=== PATIENT | male | born 1970 | race Caucasian/White ===

== ENCOUNTER 2018-10-09 09:48 | Emergency (ER) | payer OTHER ==
[~2018-10-09] VITALS: Ht 177.8 cm; Wt 120.2 kg
[2018-10-09 09:48] VITALS: BP_SYST 133
[2018-10-09] MEDS ORDERED: LORazepam 1 MG TABLET PO ONE (10:30)
[2018-10-09 11:00] LABS: CALCIUM 8.6 mg/dL (8.4-11.0); CREATININE 0.66 mg/dL (0.55-1.30); POTASSIUM 3.6 mmol/L (3.5-5.1)
[2018-10-09 11:03] LABS: BASOPHILS % (AUTO) 0.7 % (0.0-2.0); EOSINOPHILS # (AUTO) 0.1 K/uL (0.0-0.4); EOSINOPHILS % (AUTO) 1.2 % (0.0-4.0); HEMATOCRIT 43.6 % (36-54); HEMOGLOBIN 14.8 g/dL (14.0-18.0); LYMPHOCYTES # (AUTO) 1.7 K/uL (1.0-5.5); LYMPHOCYTES % (AUTO) 26.7 % (20.5-51.5); MEAN CORPUSCULAR HEMOGLOBIN 30 pg (27-31); MEAN CORPUSCULAR HGB CONC 34 % (32-36); MEAN CORPUSCULAR VOLUME 88 fL (79.0-98.0); MONOCYTES # (AUTO) 0.5 K/uL (0.0-1.0); MONOCYTES % (AUTO) 8.2 % (1.7-9.3); NEUTROPHILS % (AUTO) 63.2 % (40.0-70.0); PLATELET COUNT (AUTO) 229 K/uL (130-430); RED BLOOD CELL COUNT(AUTO) 4.93 MIL/uL (4.2-6.2); RED CELL DISTRIBUTION WIDTH 13.4 % (9.0-15.0); WHITE BLOOD COUNT (AUTO) 6.4 K/uL (4.8-10.8)
[2018-10-09 11:05] LABS: ALBUMIN 3.9 g/dL (3.4-4.8); TOTAL BILIRUBIN 1.3 mg/dL (0.0-1.0)
[2018-10-09 11:32] LABS: CKMB RELATIVE INDEX 0.4 (0.0-2.9); CREATINE KINASE MB 1.4 ng/mL (0-3.6)
[2018-10-09 12:25] VITALS: BP_SYST 147
== END 2018-10-09 12:25 | disposition home or self-care (01) ==
LOC: SED 09:48
DX: R00.2 Palpitations (principal); I10 Essential (primary) hypertension; E78.00 Pure hypercholesterolemia, unspecified; E66.01 Morbid (severe) obesity due to excess calories; Z68.38 Body mass index [BMI] 38.0-38.9, adult
CPT/HCPCS: 36415; 71045; 80053; 82550-TC; 82553-TC; 84484; 85025; 93005; 99284

== ENCOUNTER 2018-11-03 12:47 | Emergency (ER) | payer OTHER ==
[~2018-11-03] VITALS: Ht 177.8 cm; Wt 117.9 kg
[2018-11-03 13:11] VITALS: BP_SYST 134
[2018-11-03 13:56] LABS: HEMATOCRIT 44.5 % (36-54); HEMOGLOBIN 15.1 g/dL (14.0-18.0); MEAN CORPUSCULAR HEMOGLOBIN 30 pg (27-31); MEAN CORPUSCULAR HGB CONC 34 % (32-36); MEAN CORPUSCULAR VOLUME 89 fL (79.0-98.0); RED BLOOD CELL COUNT(AUTO) 5.01 MIL/uL (4.2-6.2); RED CELL DISTRIBUTION WIDTH 14.2 % (9.0-15.0); WHITE BLOOD COUNT (AUTO) 6.1 K/uL (4.8-10.8)
[2018-11-03 13:57] LABS: BASOPHILS % (AUTO) 0.6 % (0.0-2.0); EOSINOPHILS % (AUTO) 0.5 % (0.0-4.0); LYMPHOCYTES # (AUTO) 1.1 K/uL (1.0-5.5); LYMPHOCYTES % (AUTO) 18.8 % (20.5-51.5); MONOCYTES # (AUTO) 0.5 K/uL (0.0-1.0); MONOCYTES % (AUTO) 7.9 % (1.7-9.3); NEUTROPHILS # (AUTO) 4.4 K/uL (1.8-7.7); NEUTROPHILS % (AUTO) 72.2 % (40.0-70.0); PLATELET COUNT (AUTO) 240 K/uL (130-430)
[2018-11-03 14:10] LABS: ALANINE AMINOTRANSFERASE 44 U/L (12-78); ALBUMIN 3.9 g/dL (3.4-4.8); ANION GAP 10 (5-15); ASPARTATE AMINOTRANSFERASE 35 U/L (10-37); CALCIUM 9.1 mg/dL (8.4-11.0); CHLORIDE 99 mmol/L (98-107); CREATININE 0.83 mg/dL (0.55-1.30); GLUCOSE 126 mg/dL (70-99); POTASSIUM 3.7 mmol/L (3.5-5.1); SODIUM SERUM 138 mmol/L (136-145); TOTAL BILIRUBIN 0.8 mg/dL (0.0-1.0); UREA NITROGEN, BLOOD 6 mg/dL (8-21)
[2018-11-03 14:11] LABS: ALCOHOL, BLOOD < 3 mg/dL (<10); GFR AFRICAN AMERICAN 129 mL/min (>90)
[2018-11-03] MEDS ORDERED: FOLIC ACID 1 MG, THIAMINE HCL 100 MG, MAGNESIUM SULFATE 1 GM, MVI 10 ML in NACL 0.9% 1,... IV ONE (15:00)
[2018-11-03] MEDS ORDERED: LORazepam 2 MG/ML VIAL (FOR ER USE) IVP ONE (15:15)
[2018-11-03] MEDS ORDERED: NACL 0.9% 1,000 ML IV ONE (15:15)
[2018-11-03 19:14] LABS: BARBITURATE, URINE NEGATIVE (NEG <=200); BENZODIAZEPINE, URINE POSITIVE (NEG <=150); CANNABINOID, URINE NEGATIVE (NEG <=50); COCAINE, URINE NEGATIVE (NEG <=150); METHAMPHETAMINES SCREEN,URINE NEGATIVE (NEG <=500); OPIATE, URINE NEGATIVE (NEG <=100); PHENCYCLIDINE SCREEN,URINE NEGATIVE (NEG <=25); UR TRICYCLIC ANTIDEPRESSANTS NEGATIVE (NEG <=300); URINE AMPHETAMINE NEGATIVE (NEG <=500); URINE METHADONE NEGATIVE (NEG <=200); URINE OXYCODONE SCREEN NEGATIVE (NEG <=100); URINE PROPOXYPHENE SCREEN NEGATIVE (NEG <=300)
[2018-11-03 20:03] VITALS: BP_SYST 126
== END 2018-11-03 20:03 | disposition home or self-care (01) ==
LOC: SED 12:47
DX: F10.129 Alcohol abuse with intoxication, unspecified (principal); E78.00 Pure hypercholesterolemia, unspecified; I10 Essential (primary) hypertension; R51 Headache; R11.0 Nausea; Y90.0 Blood alcohol level of less than 20 mg/100 ml
CPT/HCPCS: 36415; 80053; 80307; 84484; 85025; 96374; 99283; G0482; J2060; J7030

== ENCOUNTER 2019-12-12 20:51 | Inpatient (IN) | payer OTHER ==
[~2019-12-12] VITALS: Ht 177.8 cm; Wt 126.6 kg
[2019-12-12 20:55] VITALS: BP_SYST 150
[2019-12-12 21:44] LABS: BASOPHILS % (AUTO) 0.3 % (0.0-2.0); EOSINOPHILS # (AUTO) 0.1 K/uL (0.0-0.4); EOSINOPHILS % (AUTO) 1.4 % (0.0-4.0); HEMATOCRIT 43.2 % (36-54); HEMOGLOBIN 14.8 g/dL (14.0-18.0); LYMPHOCYTES # (AUTO) 1.9 K/uL (1.0-5.5); MEAN CORPUSCULAR HEMOGLOBIN 30 pg (27-31); MEAN CORPUSCULAR HGB CONC 34 % (32-36); MEAN CORPUSCULAR VOLUME 88 fL (79.0-98.0); MONOCYTES # (AUTO) 0.7 K/uL (0.0-1.0); MONOCYTES % (AUTO) 8.8 % (1.7-9.3); NEUTROPHILS # (AUTO) 5.5 K/uL (1.8-7.7); NEUTROPHILS % (AUTO) 66.5 % (40.0-70.0); PLATELET COUNT (AUTO) 207 K/uL (130-430); RED BLOOD CELL COUNT(AUTO) 4.89 MIL/uL (4.2-6.2); RED CELL DISTRIBUTION WIDTH 13.9 % (9.0-15.0); WHITE BLOOD COUNT (AUTO) 8.2 K/uL (4.8-10.8)
[2019-12-12 21:51] LABS: CALCIUM 8.8 mg/dL (8.4-11.0); CREATININE 0.93 mg/dL (0.55-1.30); POTASSIUM 3.8 mmol/L (3.5-5.1)
[2019-12-12 21:55] LABS: PROTHROMBIN TIME 10.5 SECS (9.5-12.5)
[2019-12-12 21:56] LABS: ALBUMIN 3.7 g/dL (3.4-4.8); TOTAL BILIRUBIN 1.5 mg/dL (0.0-1.0)
[2019-12-12] MEDS ORDERED: ASPIRIN 81 MG TAB.CHEW PO ONE (22:00)
[2019-12-12] MEDS ORDERED: chlordiazePOXIDE HCL 25 MG CAPSULE PO ONE (22:30)
[2019-12-12] MEDS ORDERED: chlordiazePOXIDE HCL 25 MG CAPSULE ONE (22:44)
[2019-12-12] MEDS ORDERED: ASPIRIN 81 MG TAB.CHEW ONE (22:44)
[2019-12-12] MEDS ORDERED: ASA81 PO (23:19)
[2019-12-12] MEDS ORDERED: LIP80 PO (23:19)
[2019-12-12] MEDS ORDERED: METO25TA3 PO (23:19)
[2019-12-12] MEDS ORDERED: OMEP20CA11 PO (23:19)
[2019-12-12] MEDS ORDERED: NOR10 PO (23:19)
[2019-12-12] MEDS ORDERED: ASCO500T20 PO (23:19)
[2019-12-12] MEDS ORDERED: CYAN100T3 PO (23:19)
[2019-12-13] MEDS ORDERED: ALBUTEROL SULFATE 0.083% 2.5 MG/3 ML VIAL.NEB INH PRN (00:30)
[2019-12-13] MEDS ORDERED: ONDANSETRON HCL 4 MG/2 ML VIAL IVP PRN (00:30)
[2019-12-13] MEDS ORDERED: MORPHINE 2 MG/ML INJ. SYRINGE IVP PRN (00:30)
[2019-12-13] MEDS ORDERED: ACETAMINOPHEN 325 MG TABLET PO PRN (00:30)
[2019-12-13] MEDS ORDERED: FOLIC ACID 1 MG, THIAMINE HCL 100 MG, MAGNESIUM SULFATE 1 GM, MVI 10 ML in NACL 0.9% 1,... IV SCH (00:45)
[2019-12-13 04:39] VITALS: BP_SYST 128
[2019-12-13] MEDS: NACL 0.9% 1,000 ML IV SCH ×3 (05:27→20:24)
[2019-12-13] MEDS: LORazepam 2 MG/ML VIAL IVP PRN ×2 (05:40→23:46)
[2019-12-13 06:09] VITALS: BP_SYST 144
[2019-12-13 06:42] LABS: BASOPHILS # (AUTO) 0.1 K/uL (0.0-0.2); BASOPHILS % (AUTO) 0.8 % (0.0-2.0); EOSINOPHILS # (AUTO) 0.1 K/uL (0.0-0.4); EOSINOPHILS % (AUTO) 1.8 % (0.0-4.0); HEMOGLOBIN 14.2 g/dL (14.0-18.0); LYMPHOCYTES # (AUTO) 1.7 K/uL (1.0-5.5); LYMPHOCYTES % (AUTO) 26.5 % (20.5-51.5); MEAN CORPUSCULAR HEMOGLOBIN 30 pg (27-31); MEAN CORPUSCULAR HGB CONC 34 % (32-36); MEAN CORPUSCULAR VOLUME 88 fL (79.0-98.0); MONOCYTES # (AUTO) 0.7 K/uL (0.0-1.0); MONOCYTES % (AUTO) 10.9 % (1.7-9.3); NEUTROPHILS # (AUTO) 3.9 K/uL (1.8-7.7); PLATELET COUNT (AUTO) 197 K/uL (130-430); RED BLOOD CELL COUNT(AUTO) 4.76 MIL/uL (4.2-6.2); RED CELL DISTRIBUTION WIDTH 14.1 % (9.0-15.0); WHITE BLOOD COUNT (AUTO) 6.4 K/uL (4.8-10.8)
[2019-12-13 06:54] LABS: ALANINE AMINOTRANSFERASE 63 U/L (12-78); ALBUMIN 3.2 g/dL (3.4-4.8); ANION GAP 9 (5-15); ASPARTATE AMINOTRANSFERASE 82 U/L (10-37); CALCIUM 8.3 mg/dL (8.4-11.0); CHLORIDE 100 mmol/L (98-107); CREATININE 0.72 mg/dL (0.55-1.30); GLUCOSE 128 mg/dL (70-99); POTASSIUM 3.2 mmol/L (3.5-5.1); SODIUM SERUM 136 mmol/L (136-145); TOTAL BILIRUBIN 1.4 mg/dL (0.0-1.0); UREA NITROGEN, BLOOD 4 mg/dL (8-21)
[2019-12-13] MEDS: PANTOPRAZOLE SODIUM 40 MG TAB PO SCH (06:59)
[2019-12-13 07:05] LABS: GFR AFRICAN AMERICAN 150 mL/min (>90)
[2019-12-13 07:21] LABS: CHOLESTEROL 182 mg/dL (<200); HDL CHOLESTEROL 56 mg/dL (>45); LDL CHOLESTEROL 98 mg/dL (<100); TRIGLYCERIDES 179 mg/dL (30-150)
[2019-12-13 07:45] VITALS: BP_SYST 145
[2019-12-13] MEDS: amLODIPine BESYLATE 10 MG TABLET PO SCH (08:24)
[2019-12-13] MEDS: ASPIRIN 81 MG TAB.CHEW PO SCH (08:25)
[2019-12-13] MEDS: chlordiazePOXIDE HCL 25 MG CAPSULE PO SCH ×3 (08:25→20:19)
[2019-12-13] MEDS: METOPROLOL SUCCINATE 25 MG TAB.SR.24H (TOPROL XL) PO SCH ×2 (08:25→20:19)
[2019-12-13] MEDS ORDERED: OMEPRAZOLE Non-Formulary 20 MG CAPSULE.DR PO SCH (09:00)
[2019-12-13] MEDS: FOLIC ACID 1 MG, MVI 10 ML in NACL 0.9% 1,000 ML IV SCH (09:56)
[2019-12-13] MEDS: THIAMINE HCL 100 MG, MAGNESIUM SULFATE 1 GM in NS 100 ML IV SCH (09:57)
[2019-12-13 12:23] VITALS: BP_SYST 138
[2019-12-13 16:16] VITALS: BP_SYST 136
[2019-12-13 20:00] VITALS: BP_SYST 130
[2019-12-13] MEDS ORDERED: POTASSIUM CHLORIDE 20 MEQ TAB.PRT.SR PO ONE (20:00)
[2019-12-13] MEDS: DOCUSATE SODIUM 100 MG CAPSULE PO PRN (20:19)
[2019-12-13] MEDS: ATORVASTATIN 20 MG TABLET PO SCH (20:19)
[2019-12-13] MEDS ORDERED: ATORVASTATIN 20 MG TABLET PO SCH (21:00)
[2019-12-14 01:25] VITALS: BP_SYST 134
[2019-12-14] MEDS: NACL 0.9% 1,000 ML IV SCH ×3 (02:30→22:57)
[2019-12-14] MEDS: PANTOPRAZOLE SODIUM 40 MG TAB PO SCH (06:00)
[2019-12-14 06:42] LABS: ALBUMIN 2.9 g/dL (3.4-4.8); CALCIUM 8.1 mg/dL (8.4-11.0); CREATININE 0.75 mg/dL (0.55-1.30); POTASSIUM 3.6 mmol/L (3.5-5.1); TOTAL BILIRUBIN 1.2 mg/dL (0.0-1.0)
[2019-12-14 07:39] LABS: BASOPHILS # (AUTO) 0.1 K/uL (0.0-0.2); BASOPHILS % (AUTO) 0.9 % (0.0-2.0); EOSINOPHILS # (AUTO) 0.1 K/uL (0.0-0.4); EOSINOPHILS % (AUTO) 2.4 % (0.0-4.0); HEMATOCRIT 41.2 % (36-54); HEMOGLOBIN 13.7 g/dL (14.0-18.0); LYMPHOCYTES # (AUTO) 1.6 K/uL (1.0-5.5); MEAN CORPUSCULAR HEMOGLOBIN 30 pg (27-31); MEAN CORPUSCULAR HGB CONC 33 % (32-36); MEAN CORPUSCULAR VOLUME 89 fL (79.0-98.0); MONOCYTES # (AUTO) 0.5 K/uL (0.0-1.0); MONOCYTES % (AUTO) 8.3 % (1.7-9.3); NEUTROPHILS # (AUTO) 3.6 K/uL (1.8-7.7); NEUTROPHILS % (AUTO) 61.4 % (40.0-70.0); PLATELET COUNT (AUTO) 188 K/uL (130-430); RED BLOOD CELL COUNT(AUTO) 4.61 MIL/uL (4.2-6.2); RED CELL DISTRIBUTION WIDTH 14.3 % (9.0-15.0); WHITE BLOOD COUNT (AUTO) 5.9 K/uL (4.8-10.8)
[2019-12-14 07:54] VITALS: BP_SYST 145
[2019-12-14] MEDS: ASPIRIN 81 MG TAB.CHEW PO SCH (08:32)
[2019-12-14] MEDS: chlordiazePOXIDE HCL 25 MG CAPSULE PO SCH ×3 (08:32→19:59)
[2019-12-14] MEDS: DOCUSATE SODIUM 100 MG CAPSULE PO PRN ×2 (08:32→19:59)
[2019-12-14] MEDS: amLODIPine BESYLATE 10 MG TABLET PO SCH (08:32)
[2019-12-14] MEDS: METOPROLOL SUCCINATE 25 MG TAB.SR.24H (TOPROL XL) PO SCH ×2 (08:36→20:00)
[2019-12-14] MEDS: THIAMINE HCL 100 MG, MAGNESIUM SULFATE 1 GM in NS 100 ML IV SCH (09:14)
[2019-12-14] MEDS: FOLIC ACID 1 MG, MVI 10 ML in NACL 0.9% 1,000 ML IV SCH (09:15)
[2019-12-14 12:25] VITALS: BP_SYST 121
[2019-12-14 16:20] VITALS: BP_SYST 126
[2019-12-14] MEDS: ATORVASTATIN 20 MG TABLET PO SCH (19:59)
[2019-12-14 20:00] VITALS: BP_SYST 121
[2019-12-14 23:35] VITALS: BP_SYST 127
[2019-12-15] MEDS: LORazepam 2 MG/ML VIAL IVP PRN (00:05)
[2019-12-15] MEDS: PANTOPRAZOLE SODIUM 40 MG TAB PO SCH (05:45)
[2019-12-15 08:00] VITALS: BP_SYST 130
[2019-12-15 08:05] LABS: ALBUMIN 2.9 g/dL (3.4-4.8); CALCIUM 8.2 mg/dL (8.4-11.0); CREATININE 0.8 mg/dL (0.55-1.30); POTASSIUM 3.7 mmol/L (3.5-5.1); TOTAL BILIRUBIN 0.9 mg/dL (0.0-1.0)
[2019-12-15] MEDS ORDERED: REGADENOSON 0.4 MG/5 ML SYRINGE IVP ONE (09:30)
[2019-12-15] MEDS: FOLIC ACID 1 MG, MVI 10 ML in NACL 0.9% 1,000 ML IV SCH (10:19)
[2019-12-15] MEDS: chlordiazePOXIDE HCL 25 MG CAPSULE PO SCH (10:20)
[2019-12-15] MEDS: THIAMINE HCL 100 MG, MAGNESIUM SULFATE 1 GM in NS 100 ML IV SCH (10:20)
[2019-12-15] MEDS: amLODIPine BESYLATE 10 MG TABLET PO SCH (10:21)
[2019-12-15] MEDS: METOPROLOL SUCCINATE 25 MG TAB.SR.24H (TOPROL XL) PO SCH (10:21)
[2019-12-15] MEDS: ASPIRIN 81 MG TAB.CHEW PO SCH (10:21)
[2019-12-15 12:00] VITALS: BP_SYST 135
[2019-12-15 12:26] VITALS: BP_SYST 135
== END 2019-12-15 13:45 | disposition home or self-care (01) | DRG 392 ==
LOC: SED 20:51 → INTOOBSV 23:36 → STU 23:36 → UNDOADMOB 23:36 → STU 12-13 00:24 → INTOOBSV 12-14 09:09 → OBSVTOIN 12-14 09:09 → STU 12-14 10:44 → OBSVTOIN 12-14 10:44
PROVIDERS: ADMIT Internal Medicine Hospice and Palliative Medicine; ATTEND Internal Medicine Hospice and Palliative Medicine
DX: K21.9 Gastro-esophageal reflux disease without esophagitis (principal); E87.1 Hypo-osmolality and hyponatremia; Z68.41 Body mass index [BMI] 40.0-44.9, adult; F10.231 Alcohol dependence with withdrawal delirium; E80.6 Other disorders of bilirubin metabolism; E78.5 Hyperlipidemia, unspecified; I10 Essential (primary) hypertension; R73.9 Hyperglycemia, unspecified; K70.40 Alcoholic hepatic failure without coma; E66.01 Morbid (severe) obesity due to excess calories; F10.20 Alcohol dependence, uncomplicated; Z79.82 Long term (current) use of aspirin; Z79.899 Other long term (current) drug therapy; Z82.49 Family history of ischemic heart disease and other diseases of the circulatory system; Z87.891 Personal history of nicotine dependence; Z71.41 Alcohol abuse counseling and surveillance of alcoholic
CPT/HCPCS: 36415; 71045; 80053; 80061; 83880; 84484; 85025; 85610-TC; 85730-TC; 93005; 93017; 93306; 99285; A9500; G0378; J2060; J2785; J3411; J3475; J3490; J7030; J7050

== ENCOUNTER 2022-03-29 18:55 | Emergency (ER) | payer OTHER, MEDICAID ==
[~2022-03-29] VITALS: Ht 177.8 cm; Wt 131.5 kg
[~2022-03-29 18:55] MED LIST: ASA81 PO; ASCO500T20 PO; CYAN100T44 PO; LIP80 PO; METO25TA3 PO; NOR10 PO; OMEP20CA15 PO
[2022-03-29 19:29] VITALS: BP_SYST 175
--- NOTE | 2022-03-29 19:41 | NUR ---
PT HERE C/O SOB X2 WEEKS PER PT GOT WORSEN TODAY. PER PT HE FEELS DEHYDRATED, HE STATED HE'S BEEN DRINKNING VERYDAY FOR THE PAST 15 YRS AND STOPPED THIS MORNING. HE STATED THAT HE'S NON CMPLIANT WITH HIS MEDS FOR HTN WELL, PER PT HE STOP TAKING THEM 2 YRS AGO. PMH:ALCOHOLISM,HTN
--- NOTE | 2022-03-29 19:55 | NUR ---
Placed in room 5 . Placed on surveillance system monitor, blood pressure machine and pulse oximeter. To gown for exam. Side rails up. Report given to Mirtha STRAUSS.
[2022-03-29 19:57] LABS: BASOPHILS # (AUTO) 0.1 K/uL (0.0-0.2); BASOPHILS % (AUTO) 0.8 % (0.0-2.0); EOSINOPHILS # (AUTO) 0.1 K/uL (0.0-0.4); EOSINOPHILS % (AUTO) 0.6 % (0.0-4.0); HEMATOCRIT 45.2 % (36-54); HEMOGLOBIN 15.5 g/dL (14.0-18.0); LYMPHOCYTES # (AUTO) 1.8 K/uL (1.0-5.5); MEAN CORPUSCULAR HEMOGLOBIN 32 pg (27-31); MEAN CORPUSCULAR HGB CONC 34 % (32-36); MEAN CORPUSCULAR VOLUME 92 fL (79.0-98.0); MONOCYTES % (AUTO) 10.5 % (1.7-9.3); NEUTROPHILS # (AUTO) 6.4 K/uL (1.8-7.7); NEUTROPHILS % (AUTO) 69.1 % (40.0-70.0); PLATELET COUNT (AUTO) 177 K/uL (130-430); RED BLOOD CELL COUNT(AUTO) 4.89 MIL/uL (4.2-6.2); RED CELL DISTRIBUTION WIDTH 15.2 % (9.0-15.0); WHITE BLOOD COUNT (AUTO) 9.3 K/uL (4.8-10.8)
--- NOTE | 2022-03-29 20:00 | NUR ---
Patient brought in complaining of shortness of breath and increased shaking x 4 days. Patient reports drinking alcohol daily for 15 years. Patient reports having Covid-19 2 weeks ago . denies any pain at this time. at bedside.
--- NOTE | 2022-03-29 20:03 | NUR ---
ER at bedside examining patient.
[2022-03-29] MEDS ORDERED: LORazepam 2 MG/ML VIAL IVP ONE (20:15)
[2022-03-29 20:40] LABS: ANION GAP 11 (5-15); CALCIUM 8.9 mg/dL (8.4-11.0); CHLORIDE 97 mmol/L (98-107); CREATININE 0.81 mg/dL (0.55-1.30); GLUCOSE 110 mg/dL (70-99); POTASSIUM 3.5 mmol/L (3.5-5.1); SODIUM SERUM 133 mmol/L (136-145); UREA NITROGEN, BLOOD 2 mg/dL (8-21)
[2022-03-29 20:45] LABS: GFR AFRICAN AMERICAN 130 mL/min (>90)
--- NOTE | 2022-03-29 20:48 | NUR ---
covid swab sent to lab for processing
[2022-03-29 20:57] LABS: ALANINE AMINOTRANSFERASE 32 U/L (12-78); ALBUMIN 3.2 g/dL (3.4-4.8); ASPARTATE AMINOTRANSFERASE 91 U/L (10-37)
[2022-03-29] MEDS ORDERED: NACL 0.9% 1,000 ML IV ONE (21:15)
[2022-03-29] MEDS ORDERED: LIB25 PO (21:39)
[2022-03-29 22:31] VITALS: BP_SYST 142
--- NOTE | 2022-03-29 22:31 | NUR ---
Patient given written and verbal discharge instructions and verbalizes understanding. ER MD discussed with patient the results and treatment provided. Patient in stable condition. ID arm band removed. IV catheter removed intact and dressing applied, no active bleeding. Rx of LIBRIUM given. Patient educated on pain management and to follow up with PMD. Pain Scale 0/10 Opportunity for questions provided and answered.
== END 2022-03-29 22:31 | disposition home or self-care (01) ==
LOC: SED 18:55
DX: F10.239 Alcohol dependence with withdrawal, unspecified (principal); R06.00 Dyspnea, unspecified; I10 Essential (primary) hypertension; Z79.899 Other long term (current) drug therapy; Z20.822 Contact with and (suspected) exposure to COVID-19; Y90.6 Blood alcohol level of 120-199 mg/100 ml
CPT/HCPCS: 99285; 96374; 71045; 96361; 87426; 80053; 83880; 85025; 85379; 84484; 36415; 93005; G0482; J2060; J7030

== ENCOUNTER 2022-11-08 16:48 | Emergency (ER) | payer OTHER, MEDICAID ==
[~2022-11-08] VITALS: Ht 177.8 cm; Wt 140.2 kg
[~2022-11-08 16:48] MED LIST changes: +LIB25 PO
[2022-11-08 16:51] VITALS: BP_SYST 155
--- NOTE | 2022-11-08 16:51 | NUR ---
Placed in room 07 . Placed on ekg monitor tech, blood pressure machine and pulse oximeter. To gown for exam. Side rails up. Report given to RICA Villalta
--- NOTE | 2022-11-08 16:53 | NUR ---
PT BIB SELF FROM HOME WITH C/O ETOH WITHDRAWEL. PT STATES HE TOOK HIS LIBRIUM (CHLORDIAZEPOXIDE) THIS MORNING WITH A SIX PACK OF BEER AND BECOME NAUSEUS. PT STATES HE HAS A HERNIA. VITALS ON ARRIVAL: BP 155/98 HR 112 GLU 197 MG/DL HX - ALCOHOL, HTN, HERNIA. 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 SAFETY PRECAUTIONS AND COMFORT MEASURES IN PLACE. PENDING MD DAMON AND ORDERS.
--- NOTE | 2022-11-08 16:57 | NUR ---
DR. BRANDON AT BEDSIDE EXAMINING THE PT.
[2022-11-08] MEDS ORDERED: NACL 0.9% 2,000 ML IV ONE (17:15)
[2022-11-08] MEDS ORDERED: LORazepam 2 MG/ML VIAL IVP ONE (17:15)
[2022-11-08 17:51] LABS: BASOPHILS # (AUTO) 0.1 K/uL (0.0-0.2); BASOPHILS % (AUTO) 0.9 % (0.0-2.0); EOSINOPHILS # (AUTO) 0.1 K/uL (0.0-0.4); EOSINOPHILS % (AUTO) 1.1 % (0.0-4.0); HEMOGLOBIN 14.6 g/dL (14.0-18.0); MEAN CORPUSCULAR HEMOGLOBIN 33 pg (27-31); MEAN CORPUSCULAR HGB CONC 35 % (32-36); MEAN CORPUSCULAR VOLUME 95 fL (79.0-98.0); MONOCYTES # (AUTO) 0.8 K/uL (0.0-1.0); MONOCYTES % (AUTO) 9.8 % (1.7-9.3); NEUTROPHILS # (AUTO) 6.1 K/uL (1.8-7.7); NEUTROPHILS % (AUTO) 76.2 % (40.0-70.0); PLATELET COUNT (AUTO) 114 K/uL (130-430); RED BLOOD CELL COUNT(AUTO) 4.43 MIL/uL (4.2-6.2); RED CELL DISTRIBUTION WIDTH 18.1 % (9.0-15.0)
[2022-11-08 18:12] LABS: INR 1.4 (0.80-1.20); PROTHROMBIN TIME 14.4 SECS (9.5-12.5)
[2022-11-08 18:13] LABS: ALANINE AMINOTRANSFERASE 39 U/L (12-78); ALBUMIN 2.8 g/dL (3.4-4.8); AMYLASE 21 U/L (0-100); ANION GAP 11 (5-15); ASPARTATE AMINOTRANSFERASE 127 U/L (10-37); CALCIUM 8.2 mg/dL (8.4-11.0); CHLORIDE 100 mmol/L (98-107); CREATININE 0.83 mg/dL (0.55-1.30); GFR AFRICAN AMERICAN 127 mL/min (>90); GLUCOSE 171 mg/dL (70-99); LIPASE 139 U/L (73-393); TOTAL BILIRUBIN 4.2 mg/dL (0.0-1.0); UREA NITROGEN, BLOOD 1 mg/dL (8-21)
[2022-11-08 18:14] LABS: ALCOHOL, BLOOD < 3 mg/dL (<10)
[2022-11-08 18:38] LABS: ACETONE, SERUM NEGATIVE (NEGATIVE)
--- NOTE | 2022-11-08 19:19 | NUR ---
REPORT GIVEN TO RAULITO STRAUSS FOR CONTINUITY OF CARE. ALL QUESTIONS AND CONCERNS ADDRESSED. ALL CARE ENDORSED.
[2022-11-08] MEDS ORDERED: LIB25 PO (19:54)
[2022-11-08 20:28] VITALS: BP_SYST 138
--- NOTE | 2022-11-08 20:30 | NUR ---
Patient given written and verbal discharge instructions and verbalizes understanding. ER MD discussed with patient the results and treatment provided. Patient in stable condition. ID arm band removed. IV catheter removed intact and dressing applied, no active bleeding. Rx given. Patient educated on pain management and to follow up with PMD. Pain Scale 0/10. Opportunity for questions provided and answered. Medication side effect fact sheet provided.
== END 2022-11-08 20:28 | disposition home or self-care (01) ==
LOC: SED 16:48
DX: F10.10 Alcohol abuse, uncomplicated (principal); R10.9 Unspecified abdominal pain; R42 Dizziness and giddiness; F41.9 Anxiety disorder, unspecified; I10 Essential (primary) hypertension; Z79.899 Other long term (current) drug therapy; Y90.6 Blood alcohol level of 120-199 mg/100 ml
CPT/HCPCS: 99285; 74176; 96374; 71045; 96361; 80053; 82009; 82140; 82150; 83690; 85025; 85610; 85730; 36415; 93005; 76376; 83605; G0482; J2060; J7030